=== PATIENT | female | born 1980 | race Caucasian/White ===

== ENCOUNTER 2016-10-20 16:31 | Observation (INO) | payer OTHER ==
--- NOTE | ~2016-10-20 | HP ---
Unit #: [id number] #: [id number] Patient: CINDA RUDOLPH [id number] [address] [address] [id number] MR#: [id number] NAME: CINDA RUDOLPH ROOM: 46 Age: 36 Sex: F Admission Date: 10/20/2016 : 1980 Attending Physician: Jerome Nash M.D. Primary Care Physician: Dorothy Campbell M.D. HISTORY AND PHYSICAL CHIEF COMPLAINT Left flank pain. HISTORY OF PRESENT ILLNESS Ms. Rudolph is a 36-year-old woman admitted with a left ureteral stone. Patient also has a suspected UTI. Last evening the patient was able to pass the stone. This morning she denies pain and she denies fever or chills. The pain that she was having was severe, constant, and on a scale of 1 to 10 an 8 to 10 out of 10. The patient denied having any fever or chills. PAST MEDICAL HISTORY Depression. MEDICATIONS Prozac. ALLERGIES No known drug allergies. FAMILY HISTORY Noncontributory. PHYSICAL EXAMINATION VITAL SIGNS: She is afebrile and vital signs are stable. PULMONARY: Benign. ABDOMEN: Soft without rebounding or guarding. There is no CVA tenderness. DIAGNOSTIC STUDIES LABORATORY: White count was 10.6. Urine culture is pending. ASSESSMENT Passed ureteral stone, patient without any significant complaint. Will discharge her home on antibiotics and pain medication. Dictated by Conor Trejo/[place] TD: 10/21/2016 18:38 JOB #: [id number] Unit #: [id number] #: [id number] Patient: CINDA RUDOLPH HISTORY AND PHYSICAL Page 1 of 1 X Jerome Nash MD X HISTORY AND PHYSICAL
[~2016-10-20 16:31] MED LIST: SARAFEM20 MG PO
[2016-10-21 02:30] LABS: BASOPHIL% 0.3 % (0-2.5); HEMATOCRIT 33.6 % (35.0-45.0); HEMOGLOBIN 11.3 gm/dL (12.0-16.0); LYMPHOCYTE# 0.8 X10e3 (1.0-3.5); LYMPHOCYTE% 7.1 % (17.0-45.0); MEAN CELL VOLUME 84.5 FL (83-96); MEAN CORPUSCULAR HEMOGLOBIN 28.5 PG (28-34); MEAN CORPUSCULAR HGB CONC 33.7 g/dL (30-36); MEAN PLATELET VOLUME 7.2 FL (6.5-11.5); MONOCYTE# 0.7 X10e3 (0-1.0); MONOCYTE% 6.2 % (3.0-12.0); NEUTROPHIL# 9.2 X10e3 (1.5-7.1); NEUTROPHIL% 86.4 % (40-75); PLATELET COUNT 213 X10e3 (140-420); RED BLOOD COUNT 3.98 X10e (3.90-5.30); RED CELL DISTRIBUTION WIDTH 13.8 % (11.0-15.5); WHITE BLOOD COUNT 10.6 X10e3 (4.0-10.5)
[2016-10-21 02:35] LABS: DIFF IND NO
[2016-10-21] MEDS ORDERED: HYDROCODONE/APA1 T15 PO (10:34)
[2016-10-21] MEDS ORDERED: BACTRIM DS TABL1 TA1 PO (10:34)
== END 2016-10-21 11:25 | disposition home or self-care (01) ==
LOC: C4C 16:31
PROVIDERS: Urology
DX: N20.1 Calculus of ureter (principal); F32.9 Major depressive disorder, single episode, unspecified
CPT/HCPCS: 82365; 85025; 87086; 88300; 96374; 96375; G0378; J0696; J1170; J2550